=== PATIENT | female | born 1985 | race Caucasian/White ===

== ENCOUNTER 2017-11-28 07:12 | Inpatient (IN) | payer BC ==
[2017-11-28] VITALS (46 sets, daily range): BP systolic 100–147; BP diastolic 56–96; PULSE 49–76; TEMP 97.4–98.2
[~2017-11-28] VITALS: Ht 167.6 cm; Wt 74.5 kg
[~2017-11-28 07:12] MED LIST: PRENATAL FORMU1 EAC3 PO
[2017-11-28 09:11] LABS: BASO # 0.1 (0.0-0.2); BASO % 0.5 % (0.0-2.0); EOS # 0.1 (0.0-0.7); EOS % 1.2 % (0-4.0); GRAN # 7.6 (1.4-6.5); GRAN % 72.2 % (42.2-75.2); HEMATOCRIT 38.4 % (37.0-47.0); HEMOGLOBIN 12.7 g/dl (12.5-16.0); LYMPH % 19.2 % (20.0-51.0); MEAN CELL VOLUME 91 fl (80.0-100.0); MEAN CORPUSCULAR HEMOGLOBIN 30 pg (27.0-31.0); MEAN CORPUSCULAR HGB CONC 33 g/dl (33.0-37.0); MEAN PLATELET VOLUME 10.7 fl (7.4-10.4); MONO # 0.6 (0.1-0.6); MONO % 5.9 % (1.7-9.3); PLATELET COUNT 177 K/mm3 (130-400); RED BLOOD COUNT 4.23 M/mm3 (4.10-5.30); REDCELL DISTRIBUTION WIDTH-CV 14.5 % (11.5-14.5)
[2017-11-29 02:30] VITALS: BP 110/71; PULSE 67; TEMP 97.5
[2017-11-29 06:45] VITALS: BP 103/64; PULSE 74; TEMP 97.8
[2017-11-29 17:35] VITALS: BP 124/71; PULSE 80; TEMP 98.3
[2017-11-29 21:00] VITALS: BP 99/58; PULSE 79; TEMP 98.8
[2017-11-30 06:45] VITALS: BP 114/72; PULSE 62; TEMP 98.1
[2017-11-30] MEDS ORDERED: PERCOCET 325 MG1 TA2 PO (07:22)
[2017-11-30] MEDS ORDERED: MOTRIN 800800 MG/TAB PO (07:22)
[2017-11-30 15:30] VITALS: BP 114/68; PULSE 78; TEMP 98.1
== END 2017-11-30 20:30 | disposition home or self-care (01) | DRG 766 ==
LOC: LDR 07:12 → OB 15:45
PROVIDERS: Obstetrics & Gynecology
PROC: 10D00Z1 Extraction of Products of Conception, Low, Open Approach (ICD-10-PCS; principal; 2017-11-28)
PROC: 10907ZC Drainage of Amniotic Fluid, Therapeutic from Products of Conception, Via Natural or Artificial Opening (ICD-10-PCS; 2017-11-28)
PROC: 3E033VJ Introduction of Other Hormone into Peripheral Vein, Percutaneous Approach (ICD-10-PCS; 2017-11-28)
DX: O76 Abnormality in fetal heart rate and rhythm complicating labor and delivery (principal); Z3A.40 40 weeks gestation of pregnancy; Z37.0 Single live birth; O48.0 Post-term pregnancy
CPT/HCPCS: J0690; J1885; J2370; J2405; J2590; J2795; J3010; J7120

== ENCOUNTER → 2018-01-04 | Outpatient (CLI) | payer BC ==
[~2018-01-04] MED LIST changes: +MOTRIN 800800 MG/TAB PO; +PERCOCET 325 MG1 TA2 PO
== END ==
LOC: LAC 12:55
DX: Z39.1 Encounter for care and examination of lactating mother (principal); Z71.89 Other specified counseling

== ENCOUNTER 2018-10-08 12:18 | Emergency (ER) | payer BC ==
[~2018-10-08] VITALS: Ht 170.2 cm; Wt 56.8 kg
[2018-10-08 12:23] VITALS: BP 116/77; PULSE 71; TEMP 97.9
[2018-10-08 13:13] LABS: COLLECTION METHOD CLEAN CATCH
[2018-10-08 13:19] LABS: BASO # 0.1 (0.0-0.2); BASO % 0.6 % (0.0-2.0); EOS # 0.2 (0.0-0.7); EOS % 1.2 % (0-4.0); GRAN # 10.2 (1.4-6.5); GRAN % 81.4 % (42.2-75.2); HEMATOCRIT 40.8 % (37.0-47.0); HEMOGLOBIN 13.4 g/dl (12.5-16.0); LYMPH # 1.3 (1.2-3.4); LYMPH % 10.3 % (20.0-51.0); MEAN CELL VOLUME 91 fl (80.0-100.0); MEAN CORPUSCULAR HEMOGLOBIN 30 pg (27.0-31.0); MEAN CORPUSCULAR HGB CONC 33 g/dl (33.0-37.0); MEAN PLATELET VOLUME 9.5 fl (7.4-10.4); MONO # 0.8 (0.1-0.6); MONO % 6.1 % (1.7-9.3); PLATELET COUNT 247 K/mm3 (130-400); RED BLOOD COUNT 4.48 M/mm3 (4.10-5.30); REDCELL DISTRIBUTION WIDTH-CV 13.2 % (11.5-14.5)
[2018-10-08 13:24] LABS: AMORPHOUS CRYSTAL Present /uL; MUCOUS Present /lpf; PH 7 (5-8); SQUAMOUS EPITHELIAL 0-2 /hpf; URINE APPEARANCE Cloudy; URINE BACTERIA None Seen /hpf; URINE BILIRUBIN Negative (NEGATIVE); URINE BLOOD Negative (NEGATIVE); URINE COLOR Yellow; URINE GLUCOSE Negative (NEGATIVE); URINE KETONE Negative (NEGATIVE); URINE LEUKOCYTE ESTERASE Negative (NEGATIVE); URINE NITRATE Negative (NEGATIVE); URINE PROTEIN(semi-quant) Negative (NEGATIVE); URINE UROBILINOGEN Negative (NEGATIVE)
== END 2018-10-08 15:35 | disposition home or self-care (01) ==
LOC: COL.ER 12:18
PROVIDERS: Physician Assistant
DX: O03.9 Complete or unspecified spontaneous abortion without complication (principal); Z98.890 Other specified postprocedural states

== ENCOUNTER 2019-07-02 11:30 | Inpatient (IN) | payer BC ==
[~2019-07-02] VITALS: Ht 167.6 cm; Wt 61.8 kg
[2019-07-02] VITALS (20 sets, daily range): BP systolic 80–127; BP diastolic 47–83; PULSE 62–82; TEMP 97.8–102.6
--- NOTE | 2019-07-02 12:00 | NUR ---
PATIENT HERE IN LABOR AND DELIVERY FOR DEMISE. PATIENT TEARFUL. AT BEDSIDE. VITALS OBTAINED. ASSESMENT COMPLETE.
--- NOTE | 2019-07-02 12:30 | NUR ---
DR GRAMAJO AT PATIENTS BEDSIDE. PATIENT TEARFUL. BEDSIDE ULTRASOUND PREFORMED BY DR GRAMAJO. DR GRAMAJO DISCUSSING PLAN OF CARE
--- NOTE | 2019-07-02 13:15 | NUR ---
DR CEDEÑO AT BEDSIDE. CYTOTEC [address] CEDEÑO. TOCO MONITOR PLACED ON PATEINTS ABDOMEN. AT BEDSIDE
[2019-07-02 13:38] LABS: BASO % 0.4 % (0.0-2.0); EOS # 0.1 (0.0-0.7); EOS % 0.9 % (0-4.0); GRAN # 8.3 (1.4-6.5); GRAN % 75.5 % (42.2-75.2); HEMOGLOBIN 11.5 g/dl (12.5-16.0); LYMPH # 1.8 (1.2-3.4); LYMPH % 16.3 % (20.0-51.0); MEAN CELL VOLUME 93 fl (80.0-100.0); MEAN CORPUSCULAR HEMOGLOBIN 30 pg (27.0-31.0); MEAN CORPUSCULAR HGB CONC 33 g/dl (33.0-37.0); MEAN PLATELET VOLUME 9.5 fl (7.4-10.4); MONO # 0.6 (0.1-0.6); MONO % 5.7 % (1.7-9.3); PLATELET COUNT 201 K/mm3 (130-400); RED BLOOD COUNT 3.78 M/mm3 (4.10-5.30); REDCELL DISTRIBUTION WIDTH-CV 13.5 % (11.5-14.5)
[2019-07-02 13:39] LABS: HEMATOCRIT 35.2 % (37.0-47.0)
--- NOTE | 2019-07-02 20:48 | NUR ---
DENIES NEED FOR PAIN RELIEF AT THIS TIME. SPOUSE HERE SUPPORTIVE
--- NOTE | 2019-07-02 23:22 | NUR ---
SEATED FOR EPIDURAL 2321 SPACE OBTAINED TEST DOSE 2326 TREMENDOUS PRESSURE WHILE SEATED - ASSIST TO RECLINE BABY DELIVERS ON BED. MOTHER COMFORTED, DR CEDEÑO CALLED CORD CLAMPED, CUT, BABY HANDED TO TEARFUL MOTHER AND FATHER WRAPPED IN BLANKET. T-99.3. 2345 WISH TO HAVE MOPHEAD TRIMMER AND WRAPPER COME TO BAPTIZE BABY.
--- NOTE | 2019-07-02 23:40 | NUR ---
DR CEDEÑO HERE- DELIVERS PLACENTA. PARENTS HOLDING BABY- TEARFUL. PTS PARENTS HERE. BREAD WRAPPER OPERATOR CALLED TO VISIT. 0245 [facility] HERE TO TAKE BABY. PERMITS SIGNED FOR CREMATION. 0600 MEMORY BOX GIVEN TO PARENTS WITH FOOTPRINTS ETC.
[2019-07-03] VITALS (11 sets, daily range): BP systolic 85–116; BP diastolic 42–60; PULSE 56–92; TEMP 97.6–98.2
--- NOTE | 2019-07-03 11:00 | NUR ---
1055- Roles on unit. Reviewed patients VS with MD. Showed small silver dollar size clot passed by patient at 0930. No increase in free flow. 1100- Roles in to visit patient. Revies in depth signs and symptoms of infection and abnormal bleeding. Discusses discharge plan and follow up with patient. Gives verbal order for dishcarge home when patient ready. 1245-Reviewed discharge instructions with patient and spouse. Patient denies questions and verbalizes understanding. 1210-Ambulatory off unit with spouse.
== END 2019-07-03 12:10 | disposition home or self-care (01) | DRG 807 ==
LOC: LDR 11:30
PROVIDERS: Obstetrics & Gynecology; ADMIT Obstetrics & Gynecology
PROC: 10E0XZZ Delivery of Products of Conception, External Approach (ICD-10-PCS; principal; 2019-07-02)
DX: O34.211 Maternal care for low transverse scar from previous cesarean delivery (principal); Z37.1 Single stillbirth; Z3A.22 22 weeks gestation of pregnancy
CPT/HCPCS: J0595; J0690; J2795; J7120